=== PATIENT | female | born 1985 ===

== ENCOUNTER 2018-11-29 11:34 | Outpatient (CLI) | payer OTHER | END 2018-11-29 11:42 | disposition home or self-care (01) | LOC: MAMO-SONO 11:34 | DX: N64.4 Mastodynia (principal); Z12.31 Encounter for screening mammogram for malignant neoplasm of breast ==

== ENCOUNTER → 2018-11-30 | Outpatient (CLI) | payer OTHER | END | disposition home or self-care (01) | LOC: SONOGRAMA 08:02 | DX: N60.11 Diffuse cystic mastopathy of right breast (principal); N60.12 Diffuse cystic mastopathy of left breast; N63.13 Unspecified lump in the right breast, lower outer quadrant ==

== ENCOUNTER 2019-05-20 09:37 | Outpatient (CLI) | payer OTHER | END 2019-05-20 09:43 | disposition home or self-care (01) | LOC: SONOGRAMA 09:37 | DX: N60.11 Diffuse cystic mastopathy of right breast (principal); N60.12 Diffuse cystic mastopathy of left breast ==

== ENCOUNTER 2019-07-01 12:14 | Outpatient (CLI) | payer OTHER | END 2019-07-01 12:35 | disposition home or self-care (01) | LOC: EKG 12:14 | DX: I10 Essential (primary) hypertension (principal) ==

== ENCOUNTER 2019-07-15 08:40 | Day surgery (SDC) | payer OTHER | END 2019-07-15 15:30 | disposition home or self-care (01) | LOC: CIR.AMB 08:40 | DX: D24.1 Benign neoplasm of right breast (principal) ==

== ENCOUNTER 2020-02-27 09:09 | Outpatient (CLI) | payer OTHER | END 2020-02-27 09:23 | disposition home or self-care (01) | LOC: MAMO-SONO 09:09 | PROVIDERS: ATTEND Surgery | DX: N60.11 Diffuse cystic mastopathy of right breast (principal); N60.12 Diffuse cystic mastopathy of left breast; N60.21 Fibroadenosis of right breast ==